=== PATIENT | female | born 1945 | race Caucasian/White ===

== ENCOUNTER → 2019-11-25 10:30 | Outpatient (CLI) | payer MEDICARE, BC, SELFPAY ==
--- NOTE | ~2019-11-25 | MM_ITS ---
EXAMINATION: MM screening [facility] w soren HISTORY: Screening mammogram TECHNIQUE: Craniocaudal and mediolateral oblique 3-D tomosynthesis images were obtained and synthetic 2-D images were generated. CAD analysis was submitted and interpreted. COMPARISON: 08/14/2018 bilateral digital screening mammogram 08/20/2017 bilateral diagnostic digital mammogram and Limited bilateral breast ultrasound 08/08/2017 bilateral digital screening mammogram..... BREAST PARENCHYMAL COMPOSITION: The breasts are heterogeneously dense, which may obscure small masses . FINDINGS: There are bilateral mammographic asymmetries. Bilateral diagnostic mammography and bilatera l breast ultrasound examination are recommended. IMPRESSION: 1. Bilateral mammographic asymmetries 2. Bilateral diagnostic mammogram and bilateral breast ultrasound examination are recommended. BI-RADS Category 0: Incomplete: Needs additional imaging evaluation. Reviewed, dictated and finalized at location A. IMPRESSION: 1. Bilateral mammographic asymmetries 2. Bilateral diagnostic mammogram and bilateral breast ultrasound examination a re recommended. BI-RADS Category 0: Incomplete: Needs additional imaging evaluation.
== END ==
PROVIDERS: PCP Internal Medicine; Visit Provider Obstetrics & Gynecology
DX: Z12.31 Encounter for screening mammogram for malignant neoplasm of breast (principal); R92.8 Other abnormal and inconclusive findings on diagnostic imaging of breast
CPT/HCPCS: 77063; 77067

== ENCOUNTER → 2019-12-11 08:20 | Outpatient (CLI) | payer MEDICARE, BC, SELFPAY ==
--- NOTE | ~2019-12-11 | MMUS_ITS ---
EXAMINATION: MM diagnostic mammo BI, US breast BI limited HISTORY: Comparison to multiple prior studies sequentially, with oldest reviewed study dated 07/28/19 17. TECHNIQUE: Additional 3-D tomosynthesis images of the breasts were performed and synthetic 2-D images were generated. CAD analysis was submitted and interpreted. High resolution bilateral breast ultraso und was performed. COMPARISON: Comparison to multiple prior studies sequentially, with oldest reviewed study dated 07/27. BREAST PARENCHYMAL COMPOSITION: The breasts are heterogenously dense, which may obscure small masses FINDINGS: MAMMOGRAPHIC FINDINGS: There are persistent densities laterally in both breasts, although no discrete mass, architectural di stortion or suspicious calcifications are identified. There are diffuse scattered benign calcificatio ns. ULTRASOUND: Right breast ultrasound: At 10:00, 7 cm from the nipple there is a cluster of cysts, largest measuring 5 mm. Left breast ultrasound: There is a cluster of microcysts at 2:00, 8 cm from the nipple measuring 7 mm in aggregate. At 3:00 t here is a 3 mm cyst. No suspicious masses in either breast to suggest malignancy. IMPRESSION: 1. No evidence for malignancy in either breast. Benign findings. 2. Routine yearly screening mammogram and regular clinical breast examination are recommended. BI-RADS Category 2: Benign finding(s). Reviewed, dictated and finalized at location A. IMPRESSION: 1. No evidence for malignancy in either breast. Benign findings. 2. Routine yearly screening mammogram and regular clinical breast examination a re recommended. BI-RADS Category 2: Benign finding(s).
== END ==
PROVIDERS: Visit Provider Obstetrics & Gynecology
DX: R92.2 Inconclusive mammogram (principal)
CPT/HCPCS: 76642; 77066

== ENCOUNTER → 2021-09-13 10:42 | Outpatient (CLI) | payer MEDICARE, BC, SELFPAY ==
--- NOTE | ~2021-09-13 | MM_ITS ---
EXAMINATION: MM screening [facility] BI w soren HISTORY: Screening mammogram TECHNIQUE: Craniocaudal and mediolateral oblique 3-D tomosynthesis images were obtained and synthetic 2-D images were generated. CAD analysis was submitted and interpreted. COMPARISON: 12/11/2019, 11/25/2019, 08/14/2018 BREAST PARENCHYMAL COMPOSITION: The breasts are heterogeneously dense, which may obscure small masses . FINDINGS: There is no suspicious mass, calcification, or architectural distortion to suggest malignan cy in either breast. There has been no suspicious interval change. IMPRESSION: 1. No mammographic evidence of malignancy. 2. Recommend routine screening mammography in one year. BI-RADS Category 1: Negative Reviewed, dictated and finalized at location A.
== END ==
PROVIDERS: PCP Internal Medicine; Visit Provider Obstetrics & Gynecology
DX: Z12.31 Encounter for screening mammogram for malignant neoplasm of breast (principal)
CPT/HCPCS: 77063; 77067

== ENCOUNTER → 2023-01-05 07:21 | Outpatient (CLI) | payer MEDICARE, BC, SELFPAY ==
--- NOTE | ~2023-01-05 | MM_ITS ---
EXAMINATION: MM screening [facility] BI w soren HISTORY: Screening mammogram TECHNIQUE: Craniocaudal and mediolateral oblique 3-D tomosynthesis images were obtained and synthetic 2-D images were generated. CAD analysis was submitted and interpreted. COMPARISON: 09/13/2021 bilateral screening mammogram 12/11/2019 bilateral diagnostic mammography and bilateral Limited breast ultrasound examination 11/25/2019, 08/14/2018 screening mammogram examinations BREAST PARENCHYMAL COMPOSITION: The breasts are heterogeneously dense, which may obscure small masses . FINDINGS: Scattered bilateral benign calcifications. Stable mild fibroglandular asymmetry. There is n o evidence of suspicious mass, calcification, or architectural distortion to suggest malignancy in ei ther breast. There has been no suspicious interval change. IMPRESSION: 1. No mammographic evidence of malignancy. 2. Recommend routine screening mammography in one year. BI-RADS Category 2: Benign finding(s). Reviewed, dictated and finalized at location A.
== END ==
PROVIDERS: PCP Internal Medicine; Visit Provider Internal Medicine
DX: Z12.31 Encounter for screening mammogram for malignant neoplasm of breast (principal)
CPT/HCPCS: 77063; 77067

== ENCOUNTER → 2023-01-19 09:10 | Outpatient (CLI) | payer MEDICARE, BC, SELFPAY ==
--- NOTE | ~2023-01-19 | CT_ITS ---
EXAMINATION: CT diagnostic chest wo con DATE: 01/19/2023 09:29 INDICATION: Abnormal chest radiograph at outside institution TECHNIQUE: Computed tomography (CT) of the chest was performed without intravenous contrast. The dose -length product (DLP) was 304.87 mGy-cm. Automated exposure control and iterative reconstruction tech nique were employed. COMPARISON: None available FINDINGS: The lungs are free of acute opacities. There is a 4 mm nodule of the lingula. No pleural ef fusion or pneumothorax. Calcified pulmonary nodules and calcified right hilar and subcarinal lymph no rupal are consistent with old granulomatous disease. No pathologically enlarged thoracic lymph nodes ar e identified. The heart size is normal. There is a small sliding hiatal hernia. There is moderate tho racic spondylosis. There is a 2.1 x 1.3 cm hypoattenuating lesion of the right hepatic lobe. There is a 1.6 cm cyst of the left kidney. IMPRESSION: 1. No CT correlate for the patient's symptoms. 2. 4 mm nodule of the lingula. If the patient has no risk factors for malignancy, no further follow u p is required. If there are risk factors for malignancy (i.e., history of smoking, asbestos or radia tion exposure), consider followup CT in 12 months. 3. Indeterminate lesion of the right hepatic lobe. Recommend correlation with any available prior prasanth ging. If unavailable, MRI without and with contrast is recommended. Reviewed, dictated and finalized at location B. IMPRESSION: 1. No CT correlate for the patient's symptoms. 2. 4 mm nodule of the lingula. If the patient has no risk factors for malignanc y, no further follow up is required. If there are risk factors for malignancy (i.e., history of smoking, asbestos or radiation exposure), consider followup C T in 12 months. 3. Indeterminate lesion of the right hepatic lobe. Recommend correlation with a ny available prior imaging. If unavailable, MRI without and with contrast is re commended.
== END ==
PROVIDERS: PCP Internal Medicine; Visit Provider Internal Medicine
DX: R93.89 Abnormal findings on diagnostic imaging of other specified body structures (principal)
CPT/HCPCS: 71250